=== PATIENT | male | born 1955 | race Caucasian/White ===

== ENCOUNTER → 2016-08-25 | Outpatient (CLI) | payer OTHER ==
[~2016-08-25] MED LIST: ASPIRIN E.C. 8181 MG PO; CALCIUM/MAGNESIUM PO; DESYREL 50MG50 MG PO; DEXILANT60 MG PO; GLUCOSAMIN 500 PO; LINZESS290CAP PO; MIRALAX PA17 GM/Dose PO; MULTI VITAMINS1 TAB PO; OMEGA-3 1000 MG1 CAP PO; PAXIL 20MG20 MG PO; PROBIOTIC-MAJOR PO
[2016-08-25 12:43] LABS: BASO % 0.7 % (0.0-2.0); EOS # 0.1 (0.0-0.7); EOS % 2.4 % (0-4.0); GRAN # 2.2 (1.4-6.5); GRAN % 52.1 % (42.2-75.2); HEMATOCRIT 47.7 % (42.0-52.0); HEMOGLOBIN 16.1 g/dl (13.5-18.0); LYMPH # 1.4 (1.2-3.4); LYMPH % 33.6 % (20.0-51.0); MEAN CELL VOLUME 91 fl (80.0-100.0); MEAN CORPUSCULAR HEMOGLOBIN 31 pg (27.0-31.0); MEAN CORPUSCULAR HGB CONC 34 g/dl (33.0-37.0); MEAN PLATELET VOLUME 10.4 fl (7.4-10.4); MONO # 0.5 (0.1-0.6); PLATELET COUNT 142 K/mm3 (130-400); RED BLOOD COUNT 5.25 M/mm3 (4.20-5.60); REDCELL DISTRIBUTION WIDTH-CV 13.2 % (11.5-14.5); WHITE BLOOD COUNT 4.2 K/mm3 (4.8-10.8)
[2016-08-25 13:13] LABS: ADJUSTED CALCIUM 9.1 mg/dL (8.4-10.2); ALANINE AMINOTRANSFERASE 45 U/L (21-72); ALBUMIN 4.3 gm/dL (3.5-5.0); ALKALINE PHOSPHATASE 42 U/L (50-136); ANION GAP 10 mmol/L (7-16); BILIRUBIN,TOTAL 1.6 mg/dL (0.0-1.0); BLOOD UREA NITROGEN 13 mg/dL (9-20); CALCIUM 9.3 mg/dL (8.4-10.2); CARBON DIOXIDE 26 mmol/L (22-30); CHLORIDE 104 mmol/L (98-107); CREATININE, serum 0.95 mg/dL (0.66-1.25); GLUCOSE 85 mg/dL (74-106); POTASSIUM 4.5 mmol/L (3.4-5.0); SODIUM 140 mmol/L (137-145); TOTAL PROTEIN 7.2 gm/dL (6.4-8.2)
[2016-08-25 13:33] LABS: TROPONIN-I < 0.012 ng/mL (0.000-0.034)
== END ==
LOC: COL.RAD 12:10
PROVIDERS: Registered Nurse
DX: R07.89 Other chest pain (principal); R06.02 Shortness of breath; Z86.718 Personal history of other venous thrombosis and embolism
CPT/HCPCS: Q9967

== ENCOUNTER → 2016-09-15 | Outpatient (CLI) | payer OTHER ==
[2016-09-15 15:40] LABS: ADJUSTED CALCIUM 9.2 mg/dL (8.4-10.2); ALBUMIN 3.9 gm/dL (3.5-5.0); BILIRUBIN,TOTAL 1.1 mg/dL (0.0-1.0); CALCIUM 9.1 mg/dL (8.4-10.2); CREATININE, serum 0.99 mg/dL (0.66-1.25); POTASSIUM 4.1 mmol/L (3.4-5.0); TOTAL PROTEIN 7.1 gm/dL (6.4-8.2)
[2016-09-16 00:06] LABS: IMMUNOGLOBULIN G 1061 mg/dL (540-1822); IMMUNOGLOBULIN M, QUANTITATIVE 120 mg/dL (22-240)
== END ==
LOC: COL.RAD 13:39
PROVIDERS: Registered Nurse
DX: K76.89 Other specified diseases of liver (principal); R79.89 Other specified abnormal findings of blood chemistry; M94.0 Chondrocostal junction syndrome [Tietze]; R93.8 Abnormal findings on diagnostic imaging of other specified body structures; Z96.0 Presence of urogenital implants